=== PATIENT | male | born 1950 | race Caucasian/White ===

== ENCOUNTER 2016-06-23 16:33 | Inpatient (IN) | payer MEDICARE ==
[~2016-06-23] VITALS: Ht 182.9 cm; Wt 75.0 kg
--- NOTE | 2016-06-25 14:52 | HP ---
ADMIT: 06/23/2016 RM/LOC: 522 [facility] MR#: [id number] 26[address] [facility] [address] [place], [place] [address] SAPNA DANIELLE [address] [place] [address] History and Physical SEX: M AGE: 65 : 1950 DATE OF SERVICE: CHIEF COMPLAINT: Increasing shortness of breath and increasing abdominal girth. HISTORY OF PRESENT ILLNESS: The patient states that he has noticed over the past 2 to 3 weeks he has had increased swelling in his abdomen as well as shortness of breath. He notes that the last few days he has been having some more pain and more increased shortness of breath. He thought that possibly he was having a hernia going on as well, so he went to [facility] ED, and when they saw that his abdomen was swollen as it was they sent him to the ER. The patient does not follow with any current doctor, and he has not seen a doctor in many many years. He reports that he has always been fairly healthy and states that his family is fairly healthy as well. At this time, the patient denies nausea, vomiting, diarrhea, or constipation. Denies any blood in the stool or melena. Denies chest pain or palpitations. He does have some abdominal pain and distention. Denies any muscle aches, fever, or chills. Denies any upper respiratory infection symptoms as well. REVIEW OF SYSTEMS: A 10-point review of systems was asked and was negative otherwise mentioned in the HPI. PAST MEDICAL HISTORY: He has a history of alcoholism. He quit in 2005. At that time, he was drinking 18 beers a day or at least 3 to 4 pitchers a day. He does have a history of cocaine and other drug use specifically IV cocaine about 20 years ago and does endorse a current use of marijuana. MEDICATIONS: None. PAST SURGICAL HISTORY: None. SOCIAL HISTORY: Lives alone. FAMILY HISTORY: Older brother does have diabetes type 2, but otherwise nonsignificant. PHYSICAL EXAMINATION: VITAL SIGNS: 97.5 Fahrenheit, 66 pulse, 16 respiratory, blood pressure 145/70, and SpO2 was 95%. GENERAL: No acute distress, very pleasant. Alert and oriented x3. No confusion. HEENT: Normocephalic and atraumatic. Moist mucous membranes. Extraocular muscles are intact. ADMIT: 06/23/2016 RM/LOC: 522 [facility] MR#: [id number] [address] [address] SAPNA DANIELLE [address] [place] [address] History and Physical SEX: M AGE: 65 : 1950 HEART: Regular rate and rhythm. No murmur. LUNGS: Clear to auscultation bilaterally. No wheezing. GASTROINTESTINAL: Very very distended, but is soft. There are decreased bowel sounds. Nontender to palpation. EXTREMITIES: Some mild edema. Cranial nerves II through XII are intact. ASSESSMENT AND PLAN: Ascites likely secondary to liver failure. Liver enzymes are fairly normal at this time. We will continue workup as far as the PT/INR as well as a hepatitis virus panel and other causes for liver failure. We will also discuss the patient's possible MELD score as well. We will get last lab work done, we will also make sure that we have UDS and BAL and Tylenol level at baseline here at time of admission. Arlen Hardy MD Resident / Won Bernstein MD / modl JOB #: [id number] CC: oWn Bernstein, Attending Physician Won Bernstein, Family Physician
[2016-06-27] MEDS ORDERED: PROTONIX40 MG PO (12:34)
[2016-06-27] MEDS ORDERED: LASIX DPS20 MG PO (12:34)
[2016-06-27] MEDS ORDERED: SPIRONOLACT50 MG PO (12:34)
[2016-06-27] MEDS ORDERED: TYLENOL DPS325 MG PO (12:35)
--- NOTE | 2016-07-02 04:24 | ER ---
ADMIT: 06/23/2016 RM/LOC: 522 [facility] MR#: [id number] [address] [address] SAPNA DANIELLE [address] [place] [address] Emergency Room Report SEX: M AGE: 65 : 1950 DATE: 06/23/2016 ADDENDUM: PROCEDURE IN DETAIL: The patient had large ascites burden is his abdomen, seen on CT abdomen and pelvis. He has never complained of problems like this before. I did prep the patient in sterile manner and used a paracentesis kit standard for our facility. I used benzocaine with epi to anesthetize the skin. A catheter with trocar was introduced into the skin after 11 blade was used to make a small incision. This was done under guidance of ultrasound prior to the procedure to identify abdominal organs. The trocar and catheter entered the abdomen with ease and trocars removed and catheter was advanced. This was hooked up to tubing and began draining ascitic fluid and specimens were sent to lab for evaluation. While in the ER, I drained a total of approximately 600 mL of ascitic fluid. At which time, the patient was transferred up to the floor for admission. The patient tolerated the procedure well and began to have improvement in his symptoms of abdominal distention, pain, and difficulty breathing once the fluid was extracted. Brady Issa MD/ susana JOB #: [id number] CC: Won Bernstein MD, Attending Physician Won Bernstein MD, Family Physician
--- NOTE | 2016-07-07 08:21 | CO ---
ADMIT: 06/23/2016 RM/LOC: 522 [facility] MR#: [id number] [address] [facility] [address] [place], [place] [address] SAPAN LOO [address] [place] [address] Consultation SEX: M AGE: 65 : 1950 DATE OF CONSULTATION: 06/25/2016 ATTENDING PHYSICIAN: Won Bernstein CONSULTING PHYSICIAN: Flora Garcia MD REASON FOR CONSULTATION: Assistance with management of cirrhosis. HISTORY OF PRESENT ILLNESS: Mr. Loo is a very pleasant, 65-year-old man. He has a past medical history significant for recent diagnosis of hepatitis C as well as recent diagnosis of cirrhosis with severe ascites. He reports that since the first of the year he started noticing kind of increased abdominal girth. He thought maybe he had a hernia from just moving something. He reports that it continued to get worse and he got short of breath. Apparently, he presented to [facility] who then sent him over to the ER and notes that since then he had several liters of fluid drained off. It sounds as if he actually had a drain placed in his abdomen and has been drained on two separate occasions. He reports he feels much better, much more comfortable. He reports that really nothing changed before the first of the year that he is aware of. He previously had a history of alcohol use. He was unaware of his hepatitis C diagnosis until now, but otherwise reports that he has been in his usual state of health. PAST MEDICAL HISTORY: Significant for: 1. History of alcoholism, quit in 2005. At that time, he was drinking 18 beers a day or least 3 to 4 pitchers today. 2. History of cocaine IV use. 3. Current marijuana use. 4. Hepatitis C. 5. Cirrhosis by ultrasound. MEDICATIONS: Currently are: 1. He is on some IV fluids. 2. Protonix. PAST SURGICAL HISTORY: None except for the placement of the peritoneal drain. SOCIAL HISTORY: He lives with his ex-. Reports that he has never smoked. FAMILY HISTORY: Positive for hypertension, diabetes, but no cancer. REVIEW OF SYSTEMS: Obtained was otherwise essentially negative. PHYSICAL EXAMINATION: GENERAL: He is alert and oriented. He is a little pale. He is in no apparent distress. HEENT: Pupils are equal, round, reactive. Oropharynx has dry mucous membranes. NECK: Supple. HEART: Normal rate with a regular rhythm. LUNGS: Diminished breath sounds at bases bilaterally. ADMIT: 06/23/2016 RM/LOC: 522 [facility] MR#: [id number] [address] [address] SAPNA LOO [address] [place] [address] Consultation SEX: M AGE: 65 : 1950 ABDOMEN: Soft. Bowel sounds are present. He does have significant ascites present. EXTREMITIES: He has trace lower extremity edema. ASSESSMENT AND PLAN: Cirrhosis with decompensation, not sure of the trigger of his decompensation, however, obvious risk factors for cirrhosis or his history of alcoholism and his current hepatitis C. Did discuss with the patient the treatment options. Did discuss giving him spironolactone as well as continued intermittent drainage of his abdomen as well as diet modification. Also, did discuss with him sitting down with a liver store team member at some point in time to discuss possible benefits versus treatment of his hepatitis C and patient did seem open to all of these options. We will plan to stop his IV fluids. Limit his sodium intake to 1.5 g per 24 hours. We will start him on some Aldactone and monitor his potassium in the morning. We will give him the hepatitis A and hepatitis B vaccine. Change his Protonix to p.o. Otherwise, we will communicate this back with his primary care team. Flora Garcia MD/ susana JOB #: [id number] CC: Won Bernstein, Attending Physician Won Bernstein, Family Physician
--- NOTE | 2016-08-03 17:50 | ER ---
ADMIT: 06/23/2016 RM/LOC: 522 [facility] MR#: [id number] ACC#: [id number] [address] [facility] [address] [place] [address] SAPNA DANIELLE [address] [place] [address] Emergency Room Report SEX: M AGE: 65 : 1950 DATE: 06/23/2016 ADDENDUM: This patient comes into the ER because for the last week he has had swelling in his abdomen. He states about a month ago. He was lifting something very heavy, and he felt like he made himself to have hernia in his left testicle. Since then, he has had increased swelling in his whole abdomen. The swelling is so bad now that he is having difficulty breathing and cannot breathe if he lays flat. He states most of the pain is caused from his belly stretching and from the pressure that he is putting on his lungs is making him not to breathe. He says he really does not have any pain in his abdomen and he has been able to eat and drink normally. He takes an aspirin daily. Otherwise, he states he is healthy. He denies any surgeries. He states about 10 years ago he used to be a heavy drinker, but since then he has not drink. On physical exam, he has impressive distention in his abdomen. It is hard to palpation. His lungs are clear. His white count was normal. His platelet count was 90. CMP; his liver enzymes were within normal limits. Bilirubin normal. His glucose was slightly elevated at 130. Lipase is normal. CAT scan showed a large amount of ascites. DIAGNOSIS: Ascites. I did consult with Dr. Issa concerning treatment of this patient. He also examined the patient and performed a paracentesis. I spoke with Dr. Hardy and Dr. Bernstein, and this patient will be admitted by them. Please see their dictation for further treatment and also Dr. Issa's dictation for the procedure. EDIT: 07/09/2016 1241 ajf SIDNEY Li / Brady Issa MD / susana JOB #: [id number] CC: Won Bernstein MD, Attending Physician Won Bernstein MD, Family Physician
--- NOTE | 2016-08-06 19:11 | DS ---
ADMIT: 06/23/2016 RM/LOC: 522 [facility] MR#: [id number] [address] [address] SAPNA DANIELLE [address] [place] [address] General Discharge Summary SEX: M AGE: 65 : 1950 ADMISSION DATE: 06/23/2016 DISCHARGE DATE: 06/26/2016 Admitting Physician: Dr. Bernstein. Consulting Physician: Dr. Garcia FINAL DIAGNOSES: 1. Liver cirrhosis with decompensation likely secondary to history of alcoholism and current hepatitis C infection. 2. Hepatitis C. 3. History of alcoholism. 4. History of cocaine use 20 years ago, current marijuana use. PROCEDURES: Paracentesis of greater than 10 L were removed throughout the patient's hospital stay. Lab data that needs to be followed is a BMP. HOSPITAL COURSE: 1. Increased abdominal girth and ascites. The patient was admitted to the hospital for increased swelling in his abdomen as well as shortness of breath. He has noticed swelling for the past 2-3 weeks. Over last few days, it has been worsening. He also started having abdominal pain. The patient had an ultrasound that showed liver cirrhosis and a large amount of ascites. We performed a therapeutic paracentesis as well as diagnostic purposes. We removed 10 L of fluid over his 3 days in the hospital. Lab work showed mild elevation of the patient's LFTs likely due to long history of alcoholism and undetermined timeof hepatitis C. Studies done on the peritoneal fluid did not show any signs of infection. He had normal PMN and no bacteria was seen in the fluid. Other workup for liver cirrhosis was done and the patient was found to be positive for hepatitis C, but was negative for hepatitis A and B. Also Charlie's workup was performed and that was also negative. The patient also had a SAAG done which is normal. The patient's peritoneal fluid albumin was 0.6. Ammonia level was slightly elevated throughout the hospitalization. Further imaging on the patient's abdomen and pelvis showed possible esophageal varices as well as splenic varices. The patient was started on Protonix to help with the esophageal varices. The patient will need an EGD as an outpatient for followup. Due to the patient's hepatitis C, the patient will be set up with Hepatology at [facility] for further evaluation and treatment. Again, the patient's shortness of breath and abdominal distention improved with paracentesis. More of the patient's symptoms are being managed and comorbidities of the varices are being treated with Protonix. The patient was also started on daily Lasix as well as spironolactone to help with the ascites. 2. Hepatitis C. The patient was diagnosed with hepatitis C with an elevated viral load as well. The patient will be set up with Hepatology as an outpatient followup. ADMIT: 06/23/2016 RM/LOC: 522 [facility] MR#: [id number] [address] [place] [address] SAPNA DANIELLE [address] [place] [address] General Discharge Summary SEX: M AGE: 65 : 1950 DISCHARGE MEDICATIONS: Include: 1. Protonix 40 mg daily. 2. Spironolactone 50 mg daily. 3. Lasix 20 mg daily. 4. Tylenol as needed 650 mg. DISCHARGE CONDITION: Stable and improved. DISCHARGE INSTRUCTIONS: The patient has a followup appointment with Dr. Bernstein on 07/02/2016. BMP will be done at that visit to follow electrolytes. Again the patient will have an appointment set up with [facility] Hepatology Team. Arlen Hardy MD Resident / Won Bernstein MD / susana JOB #: [id number] CC: Won Bernstein MD, Attending Physician Won Bernstein MD, Family Physician
== END 2016-06-26 13:59 | disposition home or self-care (01) | DRG 433 ==
LOC: ER 16:33 → 5MS 18:50 → ER 18:50 → 5MS 21:10
PROVIDERS: ADMIT Family Medicine
PROC: 0W9G30Z Drainage of Peritoneal Cavity with Drainage Device, Percutaneous Approach (ICD-10-PCS; principal; 2016-06-23)
DX: K70.31 Alcoholic cirrhosis of liver with ascites (principal); I85.00 Esophageal varices without bleeding; K70.11 Alcoholic hepatitis with ascites; K72.90 Hepatic failure, unspecified without coma; D69.6 Thrombocytopenia, unspecified; F12.90 Cannabis use, unspecified, uncomplicated; I86.8 Varicose veins of other specified sites; B19.20 Unspecified viral hepatitis C without hepatic coma; F10.21 Alcohol dependence, in remission; Z66 Do not resuscitate

== ENCOUNTER → 2016-08-10 | Outpatient (CLI) | payer MEDICARE ==
[~2016-08-10] MED LIST: LASIX DPS20 MG PO; PROTONIX40 MG PO; SPIRONOLACT50 MG PO; TYLENOL DPS325 MG PO
== END | disposition home or self-care (01) ==
LOC: RAD.S 08-09 15:08 → PTH.S 09:30 → RAD.S 09:30
PROC: 0W9G3ZZ Drainage of Peritoneal Cavity, Percutaneous Approach (ICD-10-PCS; principal; 2016-08-10)
DX: K70.31 Alcoholic cirrhosis of liver with ascites (principal); R16.1 Splenomegaly, not elsewhere classified

== ENCOUNTER → 2016-08-25 | Outpatient (CLI) | payer MEDICARE | END | disposition home or self-care (01) | LOC: RAD.S 06:46 | PROC: 0W9G3ZZ Drainage of Peritoneal Cavity, Percutaneous Approach (ICD-10-PCS; principal; 2016-08-25) | DX: R18.8 Other ascites (principal); K74.60 Unspecified cirrhosis of liver; B18.9 Chronic viral hepatitis, unspecified ==

== ENCOUNTER → 2016-09-06 | Outpatient (CLI) | payer MEDICARE | END | disposition home or self-care (01) | LOC: RAD.S 12:44 | PROC: 0W9G3ZZ Drainage of Peritoneal Cavity, Percutaneous Approach (ICD-10-PCS; principal; 2016-09-06) | DX: K70.31 Alcoholic cirrhosis of liver with ascites (principal) ==

== ENCOUNTER → 2016-09-22 | Outpatient (CLI) | payer MEDICARE | END | disposition home or self-care (01) | LOC: RAD.S 07:38 | PROC: 0W9G3ZZ Drainage of Peritoneal Cavity, Percutaneous Approach (ICD-10-PCS; principal; 2016-09-22) | DX: R18.8 Other ascites (principal); K72.10 Chronic hepatic failure without coma ==

== ENCOUNTER → 2016-10-06 | Outpatient (CLI) | payer MEDICARE | END | disposition home or self-care (01) | LOC: RAD.S 10:00 | PROC: 0W9G3ZZ Drainage of Peritoneal Cavity, Percutaneous Approach (ICD-10-PCS; principal; 2016-10-06) | DX: K70.31 Alcoholic cirrhosis of liver with ascites (principal) ==

== ENCOUNTER → 2016-10-21 | Outpatient (CLI) | payer MEDICARE | END | disposition home or self-care (01) | LOC: RAD.S 13:35 | PROC: 0W9G3ZZ Drainage of Peritoneal Cavity, Percutaneous Approach (ICD-10-PCS; principal; 2016-10-21) | DX: R18.8 Other ascites (principal); K74.60 Unspecified cirrhosis of liver ==

== ENCOUNTER → 2016-11-10 | Outpatient (CLI) | payer MEDICARE | END | disposition home or self-care (01) | LOC: RAD.S 07:36 | PROC: 0W9G3ZZ Drainage of Peritoneal Cavity, Percutaneous Approach (ICD-10-PCS; principal; 2016-11-10) | DX: R18.8 Other ascites (principal) ==

== ENCOUNTER 2016-11-12 08:47 | Day surgery (SDC) | payer MEDICARE ==
[~2016-11-12] VITALS: Ht 182.9 cm; Wt 67.7 kg
--- NOTE | 2016-12-02 11:48 | OR ---
ADMIT: 11/12/2016 RM/LOC: [facility] MR#: [id number] [address] [address] SAPNA DANIELLE [address] [place] [address] Operative/Delivery Room Report SEX: M AGE: 66 : 1950 SURGERY DATE: 11/12/2016 SURGEON: Fernando García MD PRE-PROCEDURE DIAGNOSIS: Colonoscopy screening. POSTPROCEDURE DIAGNOSIS: Sigmoid diverticulosis with small hepatic flexure polyp. PROCEDURE: Colonoscopy with cold polypectomy. INDICATIONS: The patient is a 66-year-old presents for colonoscopy screening. FINDINGS: The patient was taken to the endoscopy suite. IV sedation was given. He was placed in left lateral decubitus position. Colonoscope introduced per rectum and advanced to cecum. On careful colonoscopic examination with an excellent bowel prep, there was a subtle probable hyperplastic polyp at the hepatic flexure, but I did remove it with 3 bites of cold biopsy forceps. There was no further masses or polyps. There was noted to be severe focal sigmoid diverticular disease. The rectal mucosa was normal with some nonbleeding internal hemorrhoids. The colonoscope was removed. The patient tolerated the procedure without difficulty, transferred to recovery in good condition. Fernando García MD/ susana JOB #: [id number] CC: Fernando García, Attending Physician Won Bernstein, Family Physician
== END 2016-11-12 13:35 | disposition home or self-care (01) ==
LOC: SSS 08:47
PROC: 0DBK8ZX Excision of Ascending Colon, Via Natural or Artificial Opening Endoscopic, Diagnostic (ICD-10-PCS; principal; 2016-11-12)
DX: Z12.11 Encounter for screening for malignant neoplasm of colon (principal); K63.5 Polyp of colon; K57.30 Diverticulosis of large intestine without perforation or abscess without bleeding; K64.8 Other hemorrhoids; K70.11 Alcoholic hepatitis with ascites; Z79.899 Other long term (current) drug therapy; Z79.82 Long term (current) use of aspirin